=== PATIENT | female | born 1995 | race Caucasian/White ===

== ENCOUNTER 2016-04-16 13:31 | Emergency (ER) | payer OTHER ==
--- NOTE | 2016-04-16 13:48 | ER Document Report ---
ED Medical Screen (RME) - General Stated Complaint: URINARY PROBLEM Notes: 21 yo female c/o dysuria x 1 week. no hematuria. no fever. + vaginal sore x 1 week. TRAVEL OUTSIDE OF THE [place] IN LAST 30 DAYS: No - Related Data Allergies/Adverse Reactions: No Known Allergies Allergy (Verified 03/20/16 09:11) Past Medical History - Immunizations Hx Diphtheria, Pertussis, Tetanus Vaccination: Yes
[2016-04-16 14:50] LABS: APPEARANCE,URINE CLEAR; BILIRUBIN,URINE NEGATIVE (NEGATIVE); GLUCOSE, URINE NEGATIVE (NEGATIVE); KETONES,URINE NEGATIVE (NEGATIVE); LEUKOCYTE ESTERASE,URINE NEGATIVE (NEGATIVE); NITRITE,URINE NEGATIVE (NEGATIVE); PROTEIN,URINE NEGATIVE (NEGATIVE); UROBILINOGEN,URINE NEGATIVE mg/dL (<2.0)
--- NOTE | 2016-04-16 15:05 | ER Document Report ---
ED General - General Chief Complaint: Low Back Pain Stated Complaint: URINARY PROBLEM Time seen by provider: 14:50 Mode of Arrival: Ambulatory Information source: Patient Notes: 21-year-old female who complains of 2 day history of dysuria urgency frequency and a sore on her genitalia. She also complains about feeling of a bone protruding from her lower lumbar spine which she says it been present for 7 years has been bothering her more than normal over the past week. She reports she has been in her normal state of health otherwise recently Physical Exam: General: Alert, appears well. HEENT: Normocephalic. Atraumatic. PERRLA. Extraocular movements intact. Oropharynx clear. Neck: Supple. Non-tender. Respiratory: No respiratory distress. Clear and equal breath sounds bilaterally. Cardiovascular: Regular rate and rhythm. Abdominal: Normal Inspection. Soft, non-tender. No distension. Normal Bowel Sounds. examination shows a pair of 5 mm ulcerations on red base labia majora at 7:00. No vaginal bleeding or discharge present no cervical motion tenderness no adnexal masses or tenderness your small nontender Back: Mildly tender to palpation in the lower lumbar region in the midline or spinous process or partially L4 no lesion or contusion is noted to the area. Palpation somewhat reproduces patient's pain Extremities: Moves all four extremities. No gross deformity to any extremity Neurological: Speech clear mentation clear moves all extremities well Psychological: Normal affect. Normal Mood. Skin: Warm. Dry. Normal color. TRAVEL OUTSIDE OF THE [place] IN LAST 30 DAYS: No - Related Data Allergies/Adverse Reactions: No Known Allergies Allergy (Verified 03/20/16 09:11) Past Medical History - Social History Smoking Status: Former Smoker Chew tobacco use (# tins/day): No Frequency of alcohol use: Occasional Drug Abuse: None Family History: Reviewed & Not Pertinent Patient has suicidal ideation: No Patient has homicidal ideation: No - Past Medical History Cardiac Medical History: Reports: None Pulmonary Medical History: Reports: None - Immunizations Hx Diphtheria, Pertussis, Tetanus Vaccination: Yes Review of Systems - Review of Systems Constitutional: denies: Chills, Fever EENT: denies: Ear pain, Throat pain Cardiovascular: denies: Chest pain Respiratory: denies: Cough, Short of breath Gastrointestinal: denies: Abdominal pain, Nausea, Vomiting Genitourinary: See HPI Female Genitourinary: Last menstrual period - Proximally 2 weeks ago normal for her. denies: Vaginal discharge, Vaginal bleeding Musculoskeletal: See HPI Neurological/Psychological: denies: Weakness, Numbness Course - Re-evaluation Re-evalutation: 04/16/16 15:51 Patient has examination consistent with herpes simplex. Patient will be given antibiotics for GC chlamydia coverage here and a prescription for acyclovir Patient's low back pain is chronic in nature and she is counseled to use Tylenol or Motrin for symptomatic treatment - Laboratory Laboratory results interpreted by me: 04/16/16 14:25 Urine Ascorbic Acid 40 H 04/16/16 15:50 04/16/16 15:51 Urinalysis showed no acute UTI. Trichomoniasis Monus and used were not seen on wet prep Discharge - Discharge Clinical Impression: Herpes simplex Back pain Qualifiers: Back pain location: low back pain Chronicity: chronic Back pain laterality: unspecified Sciatica presence: without sciatica Qualified Code(s): M54.5 - Low back pain; G89.29 - Other chronic pain Condition: Stable Disposition: HOME, SELF-CARE Instructions: Low Back Pain ([facility]) Additional Instructions: Herpes Simplex You have been diagnosed as having a herpes virus infection. The herpes ( "cold sore") virus usually infects the areas around the mouth. However, it can cause infection on any skin surface. It's particularly dangerous if infection occurs in the eye. On the initial infection, herpes blisters erupt over a large area. There is usually fever and aching. This infection takes about 14 days to resolve. After the initial infection, herpes sores can erupt on small areas (usually the lips), then heal in about a week. Sunburn, fever, local irritation, or even emotions can provoke a "fever blister" attack of herpes. Initial herpes infections can be treated with medication if severe. Subsequent attacks are usually given only local care to reduce symptoms; however , the physician may decide to prescribe anti-viral medication if your case warrants it. Call the doctor if you are worsening in any way. Prescriptions: Acyclovir [Acyclovir 400 mg Tablet] 400 mg PO TID #30 tablet Referrals: JEROME CERNA MD [ACTIVE STAFF] - Follow up as needed
[2016-04-16] MEDS ORDERED: AZITHROMYCIN 250 MG TABLET PO ONE (15:57)
[2016-04-16] MEDS ORDERED: CIPROFLOXACIN HCL 500 MG TABLET PO ONE (15:58)
== END 2016-04-16 16:20 | disposition home or self-care (01) ==
LOC: ER 13:31
DX: B00.9 Herpesviral infection, unspecified (principal); M54.5 Low back pain; G89.29 Other chronic pain; R30.0 Dysuria; R35.0 Frequency of micturition; R39.15 Urgency of urination; Z87.891 Personal history of nicotine dependence
CPT/HCPCS: 81001; 81025; 87210; 99283